=== PATIENT | male | born 1965 | race Hispanic/Latino ===

== ENCOUNTER 2019-03-03 08:28 | Emergency (ER) | payer OTHER, SELFPAY ==
[2019-03-03] MEDS ORDERED: KETOROLAC TROMETHAMINE 60 MG/2 ML VIAL ONE (09:35)
== END 2019-03-03 09:56 | disposition home or self-care (01) ==
LOC: EDH 08:28
DX: S93.691A Other sprain of right foot, initial encounter (principal); M77.41 Metatarsalgia, right foot; Z87.891 Personal history of nicotine dependence; W11.XXXA Fall on and from ladder, initial encounter; Y93.89 Activity, other specified; Y92.69 Other specified industrial and construction area as the place of occurrence of the external cause; Y99.8 Other external cause status
CPT/HCPCS: 73630; 96372; 99284; J1885